=== PATIENT | male | born 1945 | race Caucasian/White ===

== ENCOUNTER 2017-10-18 11:51 | Emergency (ER) | payer OTHER ==
[~2017-10-18] VITALS: Ht 172.7 cm; Wt 85.0 kg
[2017-10-18 13:22] LABS: HEMATOCRIT 43.7 % (38.0-50.0); HEMOGLOBIN 14.8 G/DL (12.5-16.6); MCHC 33.9 G/DL (30.0-36.0); MCV 91.4 FL (86-99); PLATELET COUNT 311 K/uL (156-360); RBC DIS.WIDTH-CV 13.1 % (11.8-14.6); RBC DIS.WIDTH-SD 44.7 % (39-53); RED BLOOD COUNT 4.78 M/uL (4.00-5.50); WHITE BLOOD COUNT 5.8 K/uL (4.1-10.2)
[2017-10-18 14:55] LABS: ALBUMIN 4.2 g/dL (3.2-4.8); CHLORIDE 108 mEq/L (99-109); POTASSIUM 4.6 mEq/L (3.7-5.4); SODIUM 141 mEq/L (136-147)
[2017-10-18 14:57] LABS: GLUCOSE 109 mg/dL (70-99); TOTAL PROTEIN 6.9 g/dL (6.4-8.3)
[2017-10-18 14:59] LABS: TOTAL BILIRUBIN 0.6 mg/dL (0.0-1.0)
[2017-10-18 15:01] LABS: ALKALINE PHOSPHATASE 67 IU/L (3-129); CREATININE 0.9 mg/dL (0.6-1.3); GFR ESTIMATE (CALCULATED) > 59 mL/min/ (58.99-99999)
[2017-10-18 15:02] LABS: UREA NITROGEN (BUN) 14 mg/dL (9-23)
[2017-10-18 15:03] LABS: AST (GOT) 25 IU/L (2-34)
[2017-10-18 15:04] LABS: ALT (GPT) 24 IU/L (3-49)
[2017-10-18 15:11] LABS: TROP-I INTERPRETATION NEGATIVE; TROPONIN-I < 0.01 ng/mL (0.0-0.30)
[2017-10-18] MEDS ORDERED: MECLIZINE HCL25 MG PO (16:34)
[2017-10-18 16:45] VITALS: BP 138/82
== END 2017-10-18 16:46 | disposition home or self-care (01) ==
LOC: EME 11:51
DX: R42 Dizziness and giddiness (principal); Z87.891 Personal history of nicotine dependence
CPT/HCPCS: 70450; 80053; 84484; 85027; 93005; 99281; 99283